=== PATIENT | female | born 1970 | race Two or more races ===

== ENCOUNTER → 2019-08-04 | Outpatient (CLI) | payer OTHER ==
[~2019-08-04] MED LIST: IOHEXOL 300 MG/ML 100ML VIAL. IV ONE
--- NOTE | 2019-08-04 17:11 | RAD ---
EXAM: CT ANGIOGRAPHY HEAD DATE: 08/04/2019 10:00 AM INDICATION: Left MCA aneurysm TECHNIQUE: CTA angiogram was obtained after IV bolus administration of 75 cc of Omnipaque 300. Multiplanar reconstruction images to include MIP and 3-D reconstruction images are submitted. One or more of the following dose reduction techniques were utilized: Automated exposure control (AEC), Adjustment of mA and/or kV according to patient size, Use of iterative reconstruction technique such as ASiR, CT scan done according to ALARA and image gently/image wisely COMPARISON: None. FINDINGS: CTA Head: Projecting laterally from the left MCA bifurcation is a wide necked aneurysm measuring 4 x 3 mm. Anterior and posterior division MCA branches arise from the base of the aneurysm. The visualized distal internal carotid arteries, anterior and middle cerebral arteries are otherwise patent and normal caliber. 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 Intracranial right vertebral artery ends in PICA. The distal vertebral arteries, basilar artery, and posterior cerebral arteries are otherwise patent and normal caliber. Parenchyma is not well evaluated due to technique. No hydrocephalus or large space occupying mass. No midline shift. Patent subarachnoid cisterns. 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 No prior imaging available for comparison. Electronically signed by: Rios Roque MD (08/04/2019 5:09 PM) [id number]
== END | disposition home or self-care (01) ==
LOC: CT 10:39
PROVIDERS: ATTEND Family Medicine
DX: I67.1 Cerebral aneurysm, nonruptured (principal)
CPT/HCPCS: 70496; Q9967